=== PATIENT | female | born 1970 | race Two or more races ===

== ENCOUNTER → 2024-12-20 | Outpatient (CLI) | payer OTHER, SELFPAY ==
--- NOTE | 2024-12-20 | XR_ITS ---
Examination: Lumbar spine, 5 views Technique: Lumbar spine AP, lateral, coned lateral lower lumbar spine, bilateral obliques 5 views Exam date and time: December 20, 2024 1140 hrs. Indications: Patient fell 2 weeks ago with injury to lower back, lower back pain. Findings: Significant osteopenia No lumbar fracture Adequate alignment lumbar vertebral bodies on the lateral view No significant lumbar disc narrowing Impression: No lumbar fracture
== END | disposition home or self-care (01) ==
LOC: CDIM 11:00
PROVIDERS: PCP Nurse Practitioner Family; Referring Provider Nurse Practitioner Family; Visit Provider Nurse Practitioner Family
DX: S39.92XA Unspecified injury of lower back, initial encounter (principal); W19.XXXA Unspecified fall, initial encounter
CPT/HCPCS: 72110

== ENCOUNTER → 2025-02-28 | Outpatient (CLI) | payer OTHER, SELFPAY ==
--- NOTE | 2025-02-28 07:00 | XR_ITS ---
Examination: MRI lumbar spine without contrast Date and time of exam: February 28, 2025 0710 hours INDICATIONS: Low back pain radiating to left leg 9 months TECHNIQUE: Multiple MRI axial and sagittal images lumbar spine FINDINGS: Satisfactory alignment lumbar vertebral bodies No lumbar fracture Mild diffuse lumbar disc desiccation No spondylolisthesis L5-S1 2 mm central lumbar disc bulge L4-L5 4 mm central lumbar disc bulge L3-L4 4 mm central lumbar disc bulge More cephalad levels unremarkable IMPRESSION: L4-L5, L3-L4 4 mm central lumbar disc bulges
== END | disposition home or self-care (01) ==
LOC: SMRI 06:57
PROVIDERS: Referring Provider Nurse Practitioner Family; Visit Provider Nurse Practitioner Family
DX: M51.370 Other intervertebral disc degeneration, lumbosacral region with discogenic back pain only (principal)
CPT/HCPCS: 72148